=== PATIENT | female | born 1950 | race Caucasian/White ===

== ENCOUNTER 2023-12-17 06:05 | Day surgery (SDC) | payer OTHER, SELFPAY ==
--- NOTE | 2023-11-16 13:20 | CM ---
Patient is scheduled for an elective R Reverse TSA on 12/17/23- she is a same day patient. Spoke with patient prior to surgery. Patient had a L Reverse TSA at in 2021. reintroduced role of Orthopedic Navigator. Patient reports that she lives with
her in a multi story home. She enters through the basement and then has a flight of steps to all living areas. Currently she functions independently. She has a shower seat. She has never had VN services. PCP is Aris Gunter.
Discussed orthopedic program and post surgical plans. Patient will return home when directed by surgeon. Reviewed MD follow up and transition to outpatient therapy. Patient is in agreement with tentative plan and states that her will be home
with her and can assist if needed.
Patient has completed online education.
Plan: Orthopedic Navigator will be involved in the care of patient after surgery and will reassess discharge needs at that time.
[2023-11-25 08:23] VITALS: BMI 21.8
[2023-11-25 10:37] LABS: Glycohemoglobin (HgbA1c) 5.6 % (4.0-5.6)
--- NOTE | 2023-11-25 10:59 | HPS.HSE ---
Family Physician
-
Family Physician: Aris Gunter Jr.
Chief Complaint
-
Advanced primary osteoarthritis of the right shoulder. Same day surgery.
History of Present Illness
The patient is a 73-year-old female presenting today for advanced primary osteoarthritis of the right shoulder. The patient previously underwent a left reverse total shoulder arthroplasty with Dr. Gurwinder Escalante in January 2022. She returns to
[facility] today with complaints of significant right shoulder pain and immobility secondary to her osteoarthritis. She notes that her current symptoms are greatly interfering with her activities of daily living and are overall impacting
her quality of life. She has tried and failed multiple conservative treatment measures in the past for her right shoulder symptoms. These conservative treatment measures include activity modification, physician supervised therapeutic exercises,
corticosteroid injections, medical management with Tylenol and NSAIDs, and the application of ice and/or heat. Recent CT findings of the right shoulder demonstrated glenohumeral osteoarthritis with a small to moderate joint effusion. She was
determined to be in need of a right reverse total shoulder arthroplasty. She denies any current complaints today such as chest pain, shortness of breath, nausea, vomiting, diarrhea, lightheadedness, dizziness, cough, sore throat, or fever.
Medical History
Past Medical History
Past Medical History: Reports Other
Additional Past Medical History:
1. Osteoarthritis, status post left reverse total shoulder arthroplasty, 01/2022, by Dr. Gurwinder Escalante.
2. Hypercholesterolemia.
3. Paroxysmal supraventricular tachycardia with palpitations, controlled with Diltiazem as needed.
4. PVCs and PACs.
5. Mild valvular disease.
6. Benign pulmonary nodule.
7. Obstructive sleep apnea, non-compliant with CPAP.
8. Colon polyps.
9. Diverticulosis.
10. Irritable bowel syndrome.
11. Hyperthyroidism, status post radioactive iodine therapy.
12. Current hypothyroidism.
13. Tension headaches.
14. Vertigo.
15. Cervicalgia.
16. Dermatomyositis in remission.
17. Benign breast cysts.
18. Bilateral retina tear, status post laser repair.
19. Herpes simplex virus.
20. Depression.
21. Osteopenia.
22. Insomnia.
23. Remote history of tobacco abuse.
24. Daily alcohol.
Past Surgical History: Reports Other
Additional Past Surgical History:
1. Left reverse total shoulder arthroplasty, 01/2022, by Dr. Gurwinder Escalante.
2. Appendectomy.
3. Breast cystectomy.
4. Breast biopsy x2 (benign).
5. Ureteral dilatation.
6. Left triceps biopsy.
7. x2.
8. Bilateral retina tear repair.
9. Tonsillectomy.
10. [place] teeth extraction.
11. Colonoscopy x3.
Social History
Tobacco: Former Smoker (She is a former less than 1-pack per day smoker who quit tobacco products altogether in her college years. )
Alcohol: Daily (She reports, on average, drinking half a glass of wine nightly with dinner.)
Personal:
Living: Other (The patient lives in a 3-story home with her . )
Family History
Family History: Not pertinent
Allergies / Home Medications
Allergy/Medication List:
Home medications:
1. Valacyclovir 1000 mg p.o. daily as needed.
2. Rosuvastatin calcium 20 mg p.o. every evening.
3. Stambaugh-3/fish oil 1 tablet p.o. every evening.
4. Multivitamin 1 tablet p.o. daily.
5. L-lysine 1000 mg p.o. daily.
6. Loperamide 2 mg p.o. daily as needed.
7. Levothyroxine 100 mcg p.o. everyday but Sundays.
8. Ibuprofen 200-600 mg p.o. daily as needed.
9. Folic acid 0.8 mg p.o. four days a week.
10. Echinacea 760 mg p.o. daily as needed.
11. Diphenhydramine 25 mg p.o. at bedtime as needed.
12. Diltiazem 30 mg p.o. daily as needed.
13. Cholecalciferol 2000 units p.o. daily.
14. Calcium citrate 600 mg p.o. every evening.
15. Excedrin migraine 1-2 tablets p.o. daily as needed.
16. Ascorbic acid with jaiden hips 500 mg p.o. daily.
�
ALLERGIES:� Clarithromycin. Bactrim.
Review of Systems
-
A 12 point ROS was completed and negative except as noted: Yes
Physical Exam
Vital Signs
Blood pressure 129/78. Heart rate 76. Respirations 18. Pulse ox 98% on room air.
Height 5 feet, 1.5 inches. Weight 53.3 kg. BMI 21.8.
Physical Exam
General: Well Developed, Well Nourished and No Apparent Distress
HEENT: NormoCephalic, Moist mucous membranes, Atraumatic and PERRLA
Respiratory: Clear
Cardiac: Regular Rhythm
GI: Soft, Non Tender and Non Distended
Musculoskeletal: Other (Left shoulder: Elevation 135. External 40. Internal to her belt. Right shoulder: Elevation 70. External 30. Internal to her belt. Good strength on manual muscle testing; however, pain and crepitus noted. )
Skin: Warm and Dry
Neuro: AO x 3 and Nonfocal/grossly intact
Laboratory Results
-
DIAGNOSTIC STUDIES as of 11/17/2023: White blood cell count 6.2. Hemoglobin 13.2. Platelet count 344,000. Sodium 141. Potassium 4.4. BUN 12. Creatinine 0.72. Glucose 89. Calcium 9.3. AST 23. ALT 15. Albumin 4.3.
DIAGNOSTIC STUDIES as of 11/25/2023: Hemoglobin A1c 5.6. MRSA nasal screen negative.
EKG provided by Cardiology.
Echocardiogram 04/09/2023: Normal left ventricular size, wall thickness, and systolic function. Estimated ejection fraction is 55-60%. Mild mitral regurgitation. Mild tricuspid regurgitation. Compared to the previous echo 10/10/2021, there is no
significant change.
Impression/Plan
-
CLEARANCES:
1. Primary medical, Dr. Aris Gunter, cleared.
� � Primary medical phone number: [phone].
2. Cardiology, Dr. Evin Posey, cleared.
3. Dental cleared.
IMPRESSION/PLAN:
1. Advanced primary osteoarthritis of the right shoulder in need of a right reverse total shoulder arthroplasty by Dr. Gurwinder Escalante on 12/17/2023. The benefits and risks of the procedure have been explained to the patient. The patient understands
these risks and wishes to proceed.
2. DVT prophylaxis: Aspirin.
3. 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 In preparation for her procedure, she has
already been prescribed Coward 5-325 mg, 1-2 tablets p.o. every 6 hours as needed for moderate to severe post-operative pain. She will also utilize Acetaminophen 650 mg p.o. every four hours as needed for mild pain, Meloxicam 15 mg p.o. daily, and
Decadron 4 mg p.o. twice a day for 3 days post-surgery.
Patient's home phone number: [phone].
Patient's cell phone number: [phone].
Patient's contact (Joss Miller - Spouse): [phone].
[2023-11-25 16:21] VITALS: BMI 21.8
[2023-12-17 07:01] VITALS: BP 154/84
[2023-12-17] MEDS: MOBIC 15 MG PO (07:03)
[2023-12-17] MEDS: TYLENOL 1000 MG PO (07:03)
[2023-12-17] MEDS: NORMOSOL-R 1000 IV (07:03)
[2023-12-17 09:50] VITALS: BP 154/84
[2023-12-17 10:46] VITALS: BP 130/74
[2023-12-17 11:15] VITALS: BP 137/99
[2023-12-17 11:45] VITALS: BP 133/86
[2023-12-17 12:15] VITALS: BP 137/88
[2023-12-17] MEDS: ANCEF 5 IV (12:25)
== END 2023-12-17 12:45 | disposition home or self-care (01) ==
LOC: SDS 06:05
PROVIDERS: ATTENDING PHYSICIAN Specialist; FAMILY PHYSICIAN Family Medicine; OTHER PHYSICIAN Internal Medicine; REFERRING PHYSICIAN Physician Assistant
DX: M19.011 Primary osteoarthritis, right shoulder (principal)
CPT/HCPCS: 23472; 36415; 73020; 83036; 87070; C1713; C1776

== ENCOUNTER → 2024-09-11 09:01 | Outpatient (REF) | payer OTHER, SELFPAY | LOC: HWWDC 09:01 | PROVIDERS: ATTENDING PHYSICIAN Family Medicine | DX: Z12.31 Encounter for screening mammogram for malignant neoplasm of breast (principal) | CPT/HCPCS: 77063; 77067 ==

== ENCOUNTER → 2024-09-22 09:35 | Outpatient (REF) | payer OTHER, SELFPAY | LOC: RAD 09:35 | PROVIDERS: ATTENDING PHYSICIAN Internal Medicine Gastroenterology; FAMILY PHYSICIAN Family Medicine | DX: K59.09 Other constipation (principal) | CPT/HCPCS: 74018 ==

== ENCOUNTER → 2025-04-17 08:15 | Outpatient (REF) | payer OTHER, SELFPAY | LOC: HWRAD 08:15 | PROVIDERS: ATTENDING PHYSICIAN Family Medicine | DX: M85.89 Other specified disorders of bone density and structure, multiple sites (principal); Z13.820 Encounter for screening for osteoporosis; Z78.0 Asymptomatic menopausal state | CPT/HCPCS: 77080 ==

== ENCOUNTER → 2025-07-23 16:45 | Outpatient (REF) | payer OTHER, SELFPAY | LOC: RAD 16:45 | PROVIDERS: ATTENDING PHYSICIAN Family Medicine | DX: M25.562 Pain in left knee (principal) | CPT/HCPCS: 73564 ==

== ENCOUNTER → 2025-09-12 09:17 | Outpatient (REF) | payer OTHER, SELFPAY | LOC: HWWDC 09:17 | PROVIDERS: ATTENDING PHYSICIAN Family Medicine | DX: Z12.31 Encounter for screening mammogram for malignant neoplasm of breast (principal) | CPT/HCPCS: 77063; 77067 ==